=== PATIENT | male | born 1950 | race Caucasian/White ===

== ENCOUNTER 2016-10-18 08:35 | Outpatient (CLI) | payer MEDICARE ==
[2016-10-18 09:26] LABS: eGFR (African) > 60; eGFR (Non-African) > 60
== END 2016-10-18 08:36 ==
LOC: LAB 08:35
PROVIDERS: ATTEND Family Medicine
DX: R73.09 Other abnormal glucose (principal); I10 Essential (primary) hypertension
CPT/HCPCS: 36415; 80053; 80061; 82043; 83036

== ENCOUNTER 2017-01-15 09:16 | Outpatient (CLI) | payer MEDICARE ==
[2017-01-15 10:11] LABS: eGFR (African) > 60; eGFR (Non-African) > 60
== END 2017-01-15 09:17 ==
LOC: LAB 09:16
PROVIDERS: ATTEND Family Medicine
DX: E78.00 Pure hypercholesterolemia, unspecified (principal); I10 Essential (primary) hypertension; R73.09 Other abnormal glucose
CPT/HCPCS: 36415; 80053; 80061; 83036

== ENCOUNTER 2018-07-29 13:21 | Outpatient (CLI) | payer MEDICARE ==
[2018-07-29 14:19] LABS: eGFR (Non-African) > 60
== END 2018-07-29 14:23 ==
LOC: LABRHC 13:21
PROVIDERS: ATTEND Family Medicine
DX: I10 Essential (primary) hypertension (principal); R73.09 Other abnormal glucose; J02.9 Acute pharyngitis, unspecified
CPT/HCPCS: 80053; 80061; 83036; 87070

== ENCOUNTER 2019-01-29 10:40 | Outpatient (CLI) | payer MEDICARE ==
[2019-01-29 11:15] LABS: eGFR (Non-African) 41
== END 2019-01-29 10:43 ==
LOC: LAB 10:40
PROVIDERS: ATTEND Family Medicine
DX: R73.09 Other abnormal glucose (principal); I10 Essential (primary) hypertension
CPT/HCPCS: 36415; 80053; 80061; 82043; 83036

== ENCOUNTER 2019-05-21 09:09 | Outpatient (CLI) | payer MEDICARE ==
[2019-05-21 09:20] LABS: BASOPHILS % 0.4 % (0.0-1.5); NEUTROPHILS # 4.8 # k/uL (1.4-7.7)
[2019-05-21 09:41] LABS: eGFR (Non-African) > 60
--- NOTE | 2019-05-21 10:10 | Diagnostic Imaging Report ---
JUANITO BENÍTEZ [facility] [id number] [facility] [address] [place], [place]. [address] Report Submission Date: May 21, 2019 9:54:38 AM CDT Patient Study Name: VENUS RUIZ Date: May 21, 2019 9:28:22 AM CDT Modality Type: DX Gender: M Description: CHEST 2VIEW : 50 Institution: [facility] Physician: JUANITO BENÍTEZ Examination: PA and lateral chest. History: Evaluate lung stephens. Comparison exam: None provided. Findings: PA and lateral views of the chest demonstrates a normal cardiac and mediastinal silhouette. Tortuous aorta with vascular calcifications. No focal infiltrate. No blunting of the costophrenic margins. Osseous structures are appropriate for age. Impression: No acute pulmonary process. Electronically signed on May 21, 2019 9:54:38 AM CDT by: Franco ANDERSON
== END 2019-05-21 09:11 ==
LOC: RT 09:09
PROVIDERS: ATTEND Nurse Practitioner Family
DX: R07.89 Other chest pain (principal)
CPT/HCPCS: 36415; 71046; 80053; 82550; 82553; 84484; 85025

== ENCOUNTER 2019-07-30 09:31 | Outpatient (CLI) | payer MEDICARE ==
[2019-07-30 10:31] LABS: A1C 5.4 % (<5.7)
== END 2019-07-30 09:36 ==
LOC: LAB 09:31
PROVIDERS: ATTEND Family Medicine
DX: I10 Essential (primary) hypertension (principal)
CPT/HCPCS: 36415; 80061; 83036